=== PATIENT | female | born 1955 | race Caucasian/White ===

== ENCOUNTER 2020-12-12 09:40 | Emergency (ER) | payer BC ==
[~2020-12-12] VITALS: Ht 165.1 cm; Wt 81.6 kg
[2020-12-12 09:47] VITALS: BP_SYST 141
--- NOTE | 2020-12-12 09:52 | NUR ---
triaged and placed in the waiting room
--- NOTE | 2020-12-12 09:55 | NUR ---
ER at bedside examining patient.
[2020-12-12] MEDS ORDERED: ONDANSETRON 4 MG ODT TAB PO ONE (10:00)
--- NOTE | 2020-12-12 10:16 | NUR ---
Patient to ER bed H1 to gown for evaluation. Side rails up.
--- NOTE | 2020-12-12 10:25 | NUR ---
UA COLLECTED AND SENT TO THE LAB
[2020-12-12] MEDS ORDERED: LORazepam 1 MG TABLET PO ONE (10:45)
--- NOTE | 2020-12-12 10:47 | NUR ---
PT IS STABLE AND CALM, ATIVAN GIVEN. PT IS RESTING IN [facility].
[2020-12-12 11:00] LABS: BASOPHILS % (AUTO) 0.1 % (0.0-2.0); EOSINOPHILS # (AUTO) 0.2 K/uL (0.0-0.4); EOSINOPHILS % (AUTO) 2.2 % (0.0-4.0); HEMOGLOBIN 12.5 g/dL (12.0-16.0); LYMPHOCYTES # (AUTO) 0.3 K/uL (1.0-5.5); LYMPHOCYTES % (AUTO) 3.3 % (20.5-51.5); MEAN CORPUSCULAR HEMOGLOBIN 34 pg (27-31); MEAN CORPUSCULAR HGB CONC 35 % (32-36); MEAN CORPUSCULAR VOLUME 99 fL (79.0-98.0); MONOCYTES # (AUTO) 0.5 K/uL (0.0-1.0); NEUTROPHILS # (AUTO) 8.2 K/uL (1.8-7.7); NEUTROPHILS % (AUTO) 89.4 % (40.0-70.0); PLATELET COUNT (AUTO) 324 K/uL (130-430); RED BLOOD CELL COUNT(AUTO) 3.65 MIL/uL (4.2-6.2); RED CELL DISTRIBUTION WIDTH 13.8 % (9.0-15.0); WHITE BLOOD COUNT (AUTO) 9.1 K/uL (4.8-10.8)
[2020-12-12 11:07] LABS: BILIRUBIN,URINE NEGATIVE (NEGATIVE); BLOOD, URINE 1+ (NEGATIVE); CLARITY/URINE CLEAR (CLEAR); COLOR,URINE YELLOW (YELLOW); GLUCOSE,URINE NEGATIVE (NEGATIVE); KETONES,URINE NEGATIVE (NEGATIVE); LEUKOCYTE ESTERASE ,URINE 1+ (NEGATIVE); NITRITE, URINE NEGATIVE (NEGATIVE); PH,URINE 5.5 (5.0-8.0); PROTEIN URINE NEGATIVE (NEGATIVE); UROBILINOGEN,URINE 0.2 (0.2-1.0)
[2020-12-12 11:20] LABS: ANION GAP 8 (5-15); CALCIUM 9.1 mg/dL (8.4-11.0); CHLORIDE 100 mmol/L (98-107); CREATININE 1.08 mg/dL (0.55-1.30); GLUCOSE 131 mg/dL (70-99); POTASSIUM 4.1 mmol/L (3.5-5.1); SODIUM SERUM 134 mmol/L (136-145); UREA NITROGEN, BLOOD 23 mg/dL (8-21)
[2020-12-12 11:22] LABS: GFR AFRICAN AMERICAN 66 mL/min (>90); INR 0.9 (0.8-1.2); PROTHROMBIN TIME 9.5 SECS (9.5-12.5)
[2020-12-12 11:34] LABS: ALANINE AMINOTRANSFERASE 142 U/L (12-78); ALBUMIN 4.1 g/dL (3.4-4.8); AMYLASE 64 U/L (0-100); ASPARTATE AMINOTRANSFERASE 85 U/L (10-37); LIPASE 99 U/L (73-393); TOTAL BILIRUBIN 0.6 mg/dL (0.0-1.0)
[2020-12-12 11:38] LABS: ACETONE, SERUM NEGATIVE (NEGATIVE)
[2020-12-12] MEDS ORDERED: LORA-259 PO (11:59)
[2020-12-12] MEDS ORDERED: ONDA-8 TL (11:59)
[2020-12-12 12:02] LABS: BACTERIA,URINE RARE /HPF (None Seen)
--- NOTE | 2020-12-12 12:19 | NUR ---
Patient given written and verbal discharge instructions and verbalizes understanding. ER MD discussed with patient the results and treatment provided. Patient in stable condition. ID arm band removed. Rx of ATIVAN AND ZOFRAN given. Patient educated on pain management and to follow up with PMD. Pain Scale 0/10. Opportunity for questions provided and answered. Medication side effect fact sheet provided.
[2020-12-12 12:28] VITALS: BP_SYST 141
== END 2020-12-12 12:19 | disposition home or self-care (01) ==
LOC: SED 09:40
DX: K29.20 Alcoholic gastritis without bleeding (principal); Y90.9 Presence of alcohol in blood, level not specified; Z79.899 Other long term (current) drug therapy
CPT/HCPCS: 36415; 80053; 80178; 81000; 82009; 82150; 83605; 83690; 85025; 85610; 85730; 99283; Q0162

== ENCOUNTER 2021-11-15 10:26 | Emergency (ER) | payer BC, OTHER ==
[~2021-11-15] VITALS: Ht 165.1 cm; Wt 69.4 kg
[~2021-11-15 10:26] MED LIST: LORA-259 PO; ONDA-8 TL
--- NOTE | 2021-11-15 10:30 | NUR ---
Pt brought by self,A&Ox4, pt presents to ER with R knee pain/swelling after slip and fall in the backyard, skin pink and warm, cap refill <3, VSS.
[2021-11-15 10:35] VITALS: BP_SYST 160
--- NOTE | 2021-11-15 10:45 | NUR ---
Dr Fraga evaluating patient at bedside
[2021-11-15] MEDS ORDERED: MORPHINE 4 MG INJ. 4 MG/ML VIAL IM ONE (11:15)
--- NOTE | 2021-11-15 13:17 | NUR ---
Knee immobilizer placed on R knee by EMT, well tolerated, crutches given.
[2021-11-15 13:56] VITALS: BP_SYST 160
--- NOTE | 2021-11-15 13:56 | NUR ---
Patient left w/o written and verbal discharge instructions and verbalizes understanding. ER MD discussed with patient the results and treatment provided. Patient in stable condition. ID arm band removed. Rx of given. Patient educated on pain management and to follow up with PMD. Pain Scale 3. Opportunity for questions provided and answered. Medication side effect fact sheet provided.
[2021-11-15] MEDS ORDERED: PERC10 PO (13:57)
[2021-11-15] MEDS ORDERED: OXYC-128 PO (14:02)
== END 2021-11-15 13:56 | disposition home or self-care (01) ==
LOC: SED 10:26
DX: S72.401A Unspecified fracture of lower end of right femur, initial encounter for closed fracture (principal); I10 Essential (primary) hypertension; F17.200 Nicotine dependence, unspecified, uncomplicated; Z88.8 Allergy status to other drugs, medicaments and biological substances; Z96.651 Presence of right artificial knee joint; Z79.899 Other long term (current) drug therapy; W18.30XA Fall on same level, unspecified, initial encounter; Y93.89 Activity, other specified; Y92.89 Other specified places as the place of occurrence of the external cause; Y99.8 Other external cause status
CPT/HCPCS: 99283; 29505; 73564; 96372; Q0162; J2270